=== PATIENT | male | born 1980 | race African-American/Black ===

== ENCOUNTER 2017-04-17 02:37 | Emergency (ER) | payer OTHER ==
[~2017-04-17] VITALS: Ht 180.3 cm; Wt 75.0 kg
[~2017-04-17 02:37] MED LIST: AMOX-366 PO; FLUO20CA25 PO; OXYC-530 PO; POLY17PO6 PO
[2017-04-17 02:58] VITALS: BP 126/80; PULSE 95; RESP 18; O2SAT 99
--- NOTE | 2017-04-17 03:49 | ED.REPORT ---
HPI-Hand Prob/Inj Date of Service Apr 17, 2017 ED Provider: Kevin Painting MD Pt is a 36 year old male presenting to the ED complaining of a foreign body in his right hand onset 3 days ago while at work. Denies numbness or tingling currently, fever, chills, SOB, wheezing, nausea, or vomiting. He was seen at [facility] 3 days ago but they were unable to find the foreign body. Nursing Notes Stated Complaint: FOREIGN BODY IN RIGHT HAND Chief Complaint: General Complaint Nursing Notes Reviewed: Yes Allergies: Coded Allergies: aspirin (Verified Allergy, Unknown, 11/13/12) Scheduled Amoxicillin/Clav K 875-125 mg (Augmentin 875-125 mg) 1 Each Tablet 1 TABLET PO BID Fluoxetine (Fluoxetine) 20 Mg Capsule 20 MG PO DAILY Polyethylene Glycol 3350 (Miralax) 17 Gm Powd.pack 17 GM PO DAILY Scheduled PRN oxyCODONE (oxyCODONE) 5 Mg Tablet 5 MG PO Q4H PRN PRN For Moderate Pain General Time Seen by Provider: 04:05 Chief Complaint Hand injury right Hx Obtained From: Patient Arrived By: Walk-in Onset Occurred: 3 days ago Symptom Duration: Since onset Progression Since Onset: Constant Location: Right Hand: : Dorsal surface Recent Healthcare: No recent hospitalization, Recent doctor visit Similar Sx Previous: No Past Medical History Past Medical History G6PD deficiency Past Surgical History None Smoking History Current Every Day Smoker Ambulatory Status Independent Review of Systems Review of Systems Note: Reports a foreign body in his right hand Constitutional: Denies: Chills, Fever Neurologic: Denies: Numbness Complete sys rev & neg: except as marked. Respiratory: Denies: Shortness of breath, Wheezing GI: Denies: Nausea, Vomiting Physical Exam Initial Vital Signs Vital Signs (First) Date Time Temp Pulse Resp B/P Pulse Ox O2 Delivery O2 Flow Rate FiO2 04/17/17 02:58 37.7 95 18 126/80 99 Room Air Initial VS: Reviewed, Vital signs normal General/Constitutional: Well-developed, Well-nourished Head / Eyes: Atraumatic, Normocephalic, PERRL ENT: Mucous membranes moist, Conjunctiva normal, No scleral icterus Neck: Supple, Non-tender, Full range of motion Respiratory: Breath sounds normal, Clear to auscultation, No respiratory distress Cardiovascular: Regular rate & rhythm, Heart sounds normal, Intact distal pulses Abdomen / GI: Soft, Non-tender, No guarding, No rebound, No distention Extremities: Vascular intact, Neuro intact, No swelling, No tenderness Skin: Warm, Dry, No cyanosis Neurologic: Alert, Oriented, Nonfocal Psychiatric: Mood/affect normal, Behavior normal, Normal thought content Wrist / Hand: No deformity, Neurologic intact, Vascular intact Small puncture wound on dorsal aspect of the 1-2 web space on the right hand. No tendon involvement. Interpretation & Diagnostics X-Ray Interpretation Xray Interpretation: Thin wire 2.6 cm from the joint and 12.3 cm from fingertip in right hand X-Ray Ordered: Hand right Interpretation / Wet Read by: Wet read ED physician Procedures Procedure Notes: Ultrasound directed foreign body removal was attempted. Area was cleansed with Shur-Clens and anesthetized with 1% lidocaine with epinephrine. The entry wound was extended slightly with a #11 blade. Multiple attempts were made using a variety of forceps type under ultrasound guidance to contact and remove the foreign body, unsuccessfully. FB Removal - Tick / Stinger Time: 04:13 Re-Eval/Medical Decision Med Decision/Clinical Course Unsuccessful ultrasound-guided attempt to remove metal foreign body in the hand. Refer to hand surgeon. Re-Evaluation/Progress : Time of Eval: 04:10 Patient Status: Condition improved Re-Evaluation/Progress Note: Discussed x ray results and attempted to remove foreign body using bedside ultrasound. Procedure unsuccessful. Discussed plan for discharge and follow up. Counseled Regarding: Diagnosis, Lab results, Need for follow-up, When/why to return to ED Discharge & Departure Primary Impression: Foreign body (FB) in soft tissue Disposition: Home Discharge Condition All VS Reviewed: Yes Condition: Improved Patient Instructions: Soft Tissue Foreign Body (ED) Additional Instructions: We can identify but not extract the foreign body. This is going to need to have actual surgery where they open the area to get it out. Contact [facility] orthopedics to schedule an appointment. Referrals: NOPCP (PCP) Jhonny Nair MD Attestation Portions of this note were transcribed by Moni Malagon. I, Dr. Painting personally performed the history, physical exam and medical decision-making; I reviewed and confirmed the accuracy of the information in the transcribed note. Signed by: Jax Black, 04/17/2017. copies to: Jhonny Nair MD, Howard L MD Apr 17, 2017 03:49 MONI MALAGON Apr 17, 2017 04:08
--- NOTE | 2017-04-17 08:01 | DRSVH ---
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 COMPARISON: None. FINDINGS: Bones: No fractures or dislocations. Carpal bones are normally aligned. No suspicious bony lesions . Soft tissues: Linear metallic foreign body compatible with wire is present in the greater thenar jorden ence. IMPRESSION: 1. Wire foreign body in the soft tissues lateral to the second metacarpal. 2. No underlying fracture. Dictated by: Víctor Winkler M.D. on 04/17/2017 at 7:59 Approved by: Víctor Winkler M.D. on 04/17/2017 at 8:00
== END 2017-04-17 05:23 | disposition home or self-care (01) ==
LOC: SED 02:45
DX: S60.551A Superficial foreign body of right hand, initial encounter (principal); W31.1XXA Contact with metalworking machines, initial encounter; Y93.89 Activity, other specified; Y99.0 Civilian activity done for income or pay; Y92.69 Other specified industrial and construction area as the place of occurrence of the external cause; F17.200 Nicotine dependence, unspecified, uncomplicated; Z88.6 Allergy status to analgesic agent

== ENCOUNTER → 2017-05-01 | Day surgery (SDC) | payer OTHER ==
[~2017-05-01] VITALS: Ht 180.3 cm; Wt 77.8 kg
[2017-05-01] VITALS (9 sets, daily range): BP systolic 115–132; BP diastolic 71–89; PULSE 61–72; RESP 12–16; O2SAT 94–100
[~2017-05-01] MED LIST changes: +Bupivacaine-MPF 0.5% 30 mL Inj INFILTRATE ONE; +CeFAZolin 2 Gm/50 mL D5W Duplex Bag IV ONE; +CeFAZolin 2 Gm/50 mL D5W IV Premix IV ONE; +CeFAZolin Inj 2 GM in IV Premix 1 EACH IV ONE; +Dexamethasone 4 mg/mL Inj IVPUSH PRN; +EPHEDrine Sulfate 50 mg/mL Inj IVPUSH PRN; -FLUO20CA25 PO; +Gentamicin 40 mg/mL 2 mL Inj IRRIGATION ONE; +HYDROcodone-APAP 5-325 mg Tablet PO PRN; +HYDROmorphone 1 mg/mL Inj IVPUSH PRN; +Lactated Ringer's 1,000 ML IV ONE; +Lactated Ringer's 1,000 ML IV SCH; +Lactated Ringer's 500 ML IV PRN; +MetoCLOpramide 5 mg/mL 2 mL Inj IVPUSH PRN; -OXYC-530 PO; +Ondansetron 2 mg/mL 2 mL Inj IVPUSH PRN; +Ondansetron 2 mg/mL 2 mL Inj ONE; -POLY17PO6 PO; +Phenylephrine 10,000 mCg/mL Inj IVPUSH PRN; +Propofol 10,000 mCg/mL 20 mL Inj ONE; +fentaNYL-PF 50 mCg/mL 2 mL Inj IVPUSH PRN; +fentaNYL-PF 50 mCg/mL 2 mL Inj ONE
--- NOTE | 2017-05-01 14:32 | PCM.HPANE ---
Patient Data Surgeon Admitting Provider: Attending Provider:Jhonny Nair MD Primary Care Physician:Bakari Lamas DO Other Provider:Joanna Horowitz Anesthesia Reason for Visit Right Hand Foreign Body Ht/WT & BMI Height (Feet): 5 Height (Inches): 11 Weight (Kilograms): 74.8 Body Mass Index 23.00 Allergies Coded Allergies: aspirin (Verified Allergy, Severe, Anaphylaxis, 04/29/17) Past Anesthesia History Anesthesia History: Denies:: Abnormal Airway, Anesthesia Reactions (HX OF G6PD DEFICIENCY), Difficult Intubation, Malignant Hyperthermia Diabetes History Hx Diabetes?: No MRSA MRSA: No Medications Active Scripts Amoxicillin/Clav K 875-125 mg (Augmentin 875-125 mg)1 Each Tablet1 Tablet PO BID #14 TABLET Ref 0 Prov:Shamika Madsen MD 06/24/16 History History of ENT Problems?: No HEENT History: Denies:: Abnormal Airway Difficult Intubation Dysphagia Hearing Problem Sinus Problem TMJ Denture Type: None Teeth Condition: Within Normal Limits Hx of Heart Problems?: Yes Cardiovascular History: Denies:: AICD Abdominal Aortic Aneurism Atrial Fibrillation Cardiac Surgery Chest Pain Congestive Heart Failure Coronary Artery Disease Edema Heart Murmur Hypertension Irregular Heartbeat Pacemaker Peripheral Vascular Rheumatic Fever Thrombophlebitis Valvular Heart Disease Other Cardiac History: HX OF G6PD DEFICIENCY Hx of Respiratory Problem?: No Respiratory History: Denies:: Emphysema Tuberculosis Use of C-PAP Machine Use of Inhalers / NEBS Hx Neurologic Problems?: No Hx of GI Problems?: No Hx of Problems?: No Male Hx: Denies:: Prostate Problems Scrotal Mass Testicular Surgery Skin History: Denies:: History Skin Disorders? Pressure Ulcers Hx Musculoskeletal Problems?: Yes Musculoskeletal History: Positive for:: Musculoskeletal Trauma (S/P LT FOOT RPR FB RT HAND (METAL)=CURRENT PROBLEM) Hx of Psycho/Social Problems?: Yes Psycho Social History: Positive for:: Hx Depression (HX OF-HAS TAKEN FLUOXETINE IN THE PAST) Hx Surgeries?: Yes (LT FOOT, groin ABSCESS) Hx Any Other Health Problems?: Yes Other History: Denies:: Cancer Hospitalization Thyroid Disease History Blood Transfusions: Positive for:: Accept Blood Products? Denies:: Blood Transfuse Reaction Blood Transfusions Hx Diabetes: No Hx Alcohol Use: NoHx Substance Use: No Smoking Status: Current Every Day Smoker Have You Smoked inLast 12 mo: YesApprox How Many Cigarettes/day: 15 Stop/Bang S-Snoring: Do You Snore Loudly: No T-Tired: feel tired, fatigued: No O-Obsered: Observed not breath: No P-Blood Pressure: treated: No B- Body Mass Index > 35 kg/m2: No A- Age over 50: No N- Neck Large Circumference: No G- Gender Male: Yes COLLEEN Total Score: 1 Risk Assessment Category Category 1A: Patient has history of documented sleep apnea, and HAS NOT received any narcotic, sedative or anesthesia administration during this stay. Category 1B: Patient has history of documented sleep apnea, and HAS received any narcotic , sedative or anesthesia administration during this stay Category 2: Patient has SUSPECTED Obstructive Sleep Apnea, and HAS received any narcotic , sedative or anesthesia administration during this stay. Category 3: Patient has SUSPECTED Obstructive Sleep Apnea and HAS NOT received narcotic, sedative or anesthesia administration during this stay. Category 4: Outpatient in Procedural Areas with known sleep apnea or who screen positive for High Risk via the STOP/BANG questionnaire. Exam Exam General Appearance: Alert, Oriented X3, Cooperative, No Acute Distress HEENT/AIRWAY: MP 2 Lungs: Clear to Auscultation Heart: Exam Unremarkable Plan Impression Patient chart reviewed, patient interviewed and anesthestic plan with risks, benefits, and alternatives discussed, and informed consent obtained. ASA Physical Status: ASA2 Mod Systemic Disease Anesthetic Plan: GA Bene/Risks/Altern/Consents: Yes HP Complete Prior to Induction: Yes Kyler Grayson MD May 01, 2017 08:00
--- NOTE | 2017-05-01 15:22 | DRSVH ---
PROCEDURE: X-RAY RIGHT HAND, MINIMUM THREE VIEWS ([id number]) INDICATIONS: 36-year-old male undergoing right hand foreign body removal. TECHNIQUE: 3 intraoperative views of the hand(s) acquired. COMPARISON: [facility], CR, XR HAND 3VW RT, 04/17/2017, 3:59. FINDINGS: Bones: No fractures or dislocations. Carpal bones are normally aligned. No suspicious bony lesions . Soft tissues: The previously noted linear metallic foreign body the second metacarpal shaft is no sin jaimee present. IMPRESSION: Fluoroscopic guidance for removal of metallic foreign body near the second metacarpal sha ft. Dictated by: Florencio Stone M.D. on 05/01/2017 at 15:18 Approved by: Florencio Stone M.D. on 05/01/2017 at 15:20
--- NOTE | 2017-05-01 15:41 | PCM.ANEP1 ---
Post Anesthesia PACU Phase 1 Assessment Vital Signs Vital Signs Date Time Temp Pulse Resp B/P Pulse Ox O2 Delivery O2 Flow Rate FiO2 05/01/17 15:30 66 14 119/75 94 Room Air 05/01/17 15:22 63 14 115/73 95 Room Air 05/01/17 15:15 66 13 119/71 94 Room Air 05/01/17 15:09 61 13 115/79 94 Room Air 05/01/17 15:00 65 12 122/82 94 Room Air 05/01/17 14:57 36 63 12 127/83 94 05/01/17 11:42 36.5 72 16 122/71 98 Room Air Anesthetic Administered: GA Level of Alertness: Sleepy, easy to arouse Pain: No Nausea or Vomiting: No CV Function & Hydration Stable: Yes Airway Device: Oxygen Delivery: Room Air Lungs: Clear to Auscultation PACU Phase 2 Assessment Complications: No Patient Instructions Provided: N/A Kyler Grayson MD May 01, 2017 15:41
--- NOTE | 2017-05-08 15:34 | PATH ---
SURGICAL PATHOLOGY Attending Physician:Bud Buckner CASE STATUS: Signed Out PATIENT NAME: JOÃO GAMEZ PID: [id number] : 1980 DATE COLLECTED:05/01/2017 00:00 SPECIMEN: Foreign Body CLINICAL HISTORY: RIGHT HAND FOREIGN BODY 1). FOREIGN BODY RIGHT HAND FINAL DIAGNOSIS: Foreign Body Right Hand: Foreign material, gross only diagnosis. ICD10: S60.551A GROSS DESCRIPTION: The specimen is received in formalin, labeled with the patient's name, sublabeled as foreign body right hand, and consists of a black-colored segment of hard metal with wire (length-2.0 cm, diameter-<0.1 cm). The specimen is not suitable for histological analysis; therefore, no sections are submitted. 05/05/17 ICD-9 CODES: CPT CODES: 1: 22632 Electronically Signed Out Raissa Mckenzie MD [facility] Pathology [facility] [address], [place] [address] Technical component performed at [facility], [address] [place] [address] Ave[address], [place], [address]
--- NOTE | 2017-05-22 20:47 | OP ---
[address] [address] OPERATIVE REPORT PATIENT: JOÃO GAMEZ : 1980 MR#: [id number] ADMIT: 05/01/2017 JOB ID: [id number] DATE OF SURGERY: 05/01/2017 PREOPERATIVE DIAGNOSIS(ES): Right hand foreign body, first dorsal web space. ICD 10 code S60.551A. POSTOPERATIVE DIAGNOSIS(ES): Right hand foreign body, first dorsal web space. ICD 10 code S60.551A. PROCEDURE: Removal of buried foreign body, right hand first dorsal web space. CPT code 07442. SURGEON: Jhonny Nair MD. ASSISTANT MEN'S LACROSSE COACH: None. ANESTHESIA: General. ESTIMATED BLOOD LOSS: Less than 5 mL. DRAINS: None. COMPLICATIONS: None. SPECIMEN: Sent to Pathology. Was a piece of wire from a drill foreman. Sponge and needle count correct. No complications. 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 He was seen in emergency department x2, and both times the medical provider was not able to remove the buried wire. He was then referred to Orthopedics. PROCEDURE: After adequate general anesthesia, a well-padded tourniquet was applied to the right upper extremity. Right arm was prepped and draped in sterile fashion. After appropriate time-out was called, the right arm was elevated, exsanguinated, tourniquet inflated to 250 mmHg. Utilizing image intensification, I was able to localize the foreign body wire in the dorsal 1st web space. It was located inferior to the index metacarpal. Care was taken to protect surrounding neurovascular structures. With careful dissection, the wire was removed. It measured approximately 2.5 cm and was a very thin film wire. The wire was sent to Pathology. The wound was irrigated with antibiotic solution. Tourniquet released. Minimal hemostasis required. Subcutaneous tissues closed with a few interrupted sutures of 4-0 Monocryl. Skin reapproximated with horizontal mattress sutures of 4-0 nylon. Xeroform dry sterile dressing was applied. The patient was taken to recovery room in stable condition. Sponge and needle count correct. No complications. His hand was also splinted. PLAN: The patient will be seen back in the office in two weeks. Sutures should be able to be removed at that time. If they have light duty available, he could perform light duty activity, not doing any heavy gripping or lifting, and minimally using that right hand, perhaps as just a minor helper hand. CC: [facility]
== END | disposition home or self-care (01) ==
LOC: SAS 11:16
PROVIDERS: ATTEND Orthopaedic Surgery
DX: S60.551A Superficial foreign body of right hand, initial encounter (principal); F32.9 Major depressive disorder, single episode, unspecified; F17.210 Nicotine dependence, cigarettes, uncomplicated; X58.XXXA Exposure to other specified factors, initial encounter; Y92.89 Other specified places as the place of occurrence of the external cause; Y99.9 Unspecified external cause status; Y93.9 Activity, unspecified
CPT/HCPCS: 20525; 73130; 87070; 87075; 87205; J0690; J1580; J1885; J2405; J2704; J3010; J7120